=== PATIENT | female | born 2000 | race Two or more races ===

== ENCOUNTER 2024-11-10 13:17 | Outpatient (AMB) | payer BC, MEDICAID, SELFPAY ==
[2024-11-10 13:26] VITALS: BP 118/81; PULSE 114; RESP 16; TEMP 36.2; O2SAT 98; BMI 23.4
--- NOTE | 2024-11-10 13:26 | PD.RESCLINIC ---
Vital Signs 11/10/24 13:26 Height 1.57 m Height Method Stated Weight 58.173 kg Weight Measurement Method Standing Scale BMI 23.4 BP 118/81 Blood Pressure Source Automatic Cuff Blood Pressure Location Left Upper Arm Position Sitting Respiration 16 Pulse 114 H Pulse Source Monitor Temp 97.2 F Temp Source Temporal Artery Scan Pulse Oximetry (%) 98 Oxygen Delivery Method Room Air Allergies/Meds Allergies & Medications Allergies Latex, Natural Rubber Allergy (Mild, Verified 11/11/24 09:33) Hives latex Allergy (Verified 11/11/24 09:33) Medication Reconciliation hydrocodone 5 mg-acetaminophen 325 mg tablet 1 tab PO Q6H #20 tabs 12/25/21 [Rx] rizatriptan 10 mg disintegrating tablet (Maxalt-DIRECTOR SELECTION AND ADMINISTRATION) 10 mg PO Q2H PRN migraine headache #30 tabs 12/26/23 [Rx] benzonatate 200 mg capsule 200 mg PO TID PRN cough 3 weeks #20 caps 11/10/24 [Rx Confirmed 11/11/24] MA Intake Visit Data Collection New Patient or Established: Established Patient (seen at [facility] within 3 years) Seen by Clinical Staff ONLY (RN/MA): No Pain Present Currently: No Pain scale:: 0 Pain Scale Used: Gillis-Waters/Numerical Washroom Attendant Required: No PCP or OBGYN visit in last 3 months: Yes Hx Now: No Do You Feel Safe at Home: Yes Authorities Contacted: N/A Smoking Status Smoking Status: Never smoker Immunization / Flu Flu Vaccine in the Last 12 Months: Yes Flu Vaccine Exclusion Criteria: No Exclusion Criteria Past Medical History Past Medical History NEUROLOGIC: Negative Neurological Disorders or Seizures CARDIAC: Negative Cardiac Disorders or Congestive Heart Failure RESPIRATORY: Positive Asthma; Negative Chronic Obstructive Pulmonary Disease (COPD) GASTROINTESTINAL: Positive Gastrointestinal Disorders and Gall Bladder Disease GENITOURINARY: Negative Genitourinary Disorders or Renal Disease ENDOCRINE: Negative Endocrine Disorders, Diabetes Mellitus Type 1 or Diabetes Mellitus Type 2 HEMATOLOGIC: Negative Blood Disorders or Anemia OTHER HISTORY: Positive Chicken Pox; Negative Autoimmune Disease, Down Syndrome, Developmental Delay, Falls, Blood Transfusions, Blood Transfusion Reaction, Anesthesia Reactions, MRSA, Measles, Mumps, Clostridium Difficile or Cancer Family History FAMILY HISTORY: Positive Family Cardiac Disorders (mom htn), Family Gastrointestinal Problems (mom and siblings gall bladder removal) and Family Surgery (gall bladder); Negative Family Respiratory Disorders, Family Cancer or Family Anesthesia Reaction Surgical History SURGICAL: Positive Lumpectomy (mass removal left breast); Negative Cardiac Surgery, Endocrine Surgery, Ear Surgery, Abdominal Surgery or Nephrectomy Social History SMOKING STATUS: Smoking status: Never smoker ALCOHOL: Alcohol Intake: Never HOUSING: Housing: House Patient Portal Questionaires Social History Living Situation History Housing: House Tobacco History Smoking Status: Never smoker Alcohol History Alcohol Intake: Never Domestic Abuse History Do You Feel Safe at Home: Yes Review of Systems Report any current symptoms Only answer those that you have currently: Past Medical History Past Medical History Have you ever been diagnosed with any of the following: Neurological Problems Seizures: No Cardiology Problems Congestive Heart Failure: No Respiratory Problems Chronic Obstructive Pulmonary Disease (COPD): No Asthma: Yes Stomache/Intestinal Problems Gall Bladder Disease: Yes Genital/Urinary Problems Renal Disease: No Endocrine Problems Diabetes Mellitus Type 1: No Diabetes Mellitus Type 2: No Blood Problems Anemia: No Other Problems Autoimmune Disease: No Down Syndrome: No Developmental Delay: No Falls: No Blood Transfusions: No Blood Transfusion Reaction: No Anesthesia Reactions: No MRSA: No Chicken Pox: Yes Measles: No Mumps: No Clostridium Difficile: No Cancer: No History of Present Illness HPI Narrative 24F with PMH H. 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 She states she had a sinus infection last week, which has improved with OTC sudafed, mucinex, nyquil, and was prescribed inhalers. Her cough is constant, dry with occasional clear sputum and keeps her awake at night. COVID was negative. Additionally, on ROS patient endorses coldness in extremities and syncope related to hypoglycemia episodes. She is being followed by endocrine. She was also seen by cardiology, with EKG and Holter monitor negative for cardiac cause of syncope. She denies any ear pain/discharge, chest pain, SOB, abd pain, N/V/D, or urinary symptoms. Review of Systems Review of Systems Systems Reviewed: All systems reviewed, normal except as documented Objective/Exam Narrative Physical exam: Gen: AAOx3, pleasant to speak with, answers Qs appropriately HEENT: NCAT, PERRLA, EOMI, MMM, no LAD, mild erythema in pharynx without exudates. B/L TM visualized without any fullness or effusions noted CVS: normal S1, S2. tachycardic, RR. No MRG Resp: CTA B/L. No rhonchi, rales, crackles or wheezing Abd: soft, non-tender, non-distended. BS+ in all 4 quadrants MSK: Good ROM in BUE & BLE. No edema or rash. Neuro: CN II-XII grossly intact. Strength 5/5 in BUE & BLE. Psych: appropriate mood and affect. Assessment & Plan Diagnosis / Problem List (1) Cough in adult: Status: Acute Assessment & Plan: Lingering cough after sinus infection, and has tried OTC tx including mucinex, nyquil, sudafed. Was prescribed inhalers. Plan: Will add tessalon perles 200mg q8hr prn to help with cough at night, as patient is in nursing school and is feeling tired from poor sleep related to cough (2) Hypoglycemia: Status: Acute Assessment & Plan: Hypoglycemia associated with syncopal episodes Plan: Advised patient to continue following with endocrine, and to look for signs/symptoms of hypoglycemia. Additionally recommended to keep juice/candy with her in case of hypoglycemia. Plan tessalon for cough suppressant Additional Assessment Internal Medicine Attending Note: Case discussed with and agree with note and management plan of Resident Physician as per Resident's Note above. Issues of concern for present visit are as follows: Walk-in visit. Recent course of sinusitis. Still with complaint of irritation in throat, some cough. Using appropriate OTC regimen. Will add nighttime cough suppressant (benzonatate). Consider use of PPI, history of Helicobacter pylori treated. No indication for antibiotics at this time. Report of episodes of symptomatic hypoglycemia, patient currently seeing endocrinology and will follow-up with them for further workup. History of growth hormone deficiency as a child. Ciro Saavedra MD Physician Billing New Patient New Patient: E/M Level 3-CPT 96520 Office Procedures [facility] Level of Care Nursing/Assessment Patient Status: Established Patient Nursing Assessment/Reassessment: Medication Reconciliation, Update PMH in EMR and Vital Signs Coordination of Care: Complex Care and Chronic Disease 1-5, Consent,records obtained, informed consent, Education Simp Pt/Fam and Staff clarify orders Established Patient Charge Established Patient Point Assignment: 85 Established Patient Point Charge: Level 3 (80-115)
== END 2024-11-10 14:55 | disposition home or self-care (01) ==
LOC: HODAHC 13:17
PROVIDERS: PCP Family Medicine; Referring Provider Family Medicine; Supervising Provider Internal Medicine; Visit Provider Student in an Organized Health Care Education/Training Program
DX: R05.9 Cough, unspecified (principal); R53.1 Weakness; E16.2 Hypoglycemia, unspecified
CPT/HCPCS: 99213; G0463

== ENCOUNTER → 2024-12-23 | Outpatient (CLI) | payer BC, MEDICAID, SELFPAY ==
[2024-12-23 15:39] LABS: Collection Type, Urine Clean Catch
[2024-12-23 17:05] LABS: Bacteria,Urine 1+; Bilirubin,Urine Negative (Negative); Blood,Urine Negative (Negative); Color,Urine Lt-Yellow (Lt Yel-Yel); Glucose, Urine Negative (Negative); Ketones,Urine Negative (Negative); Leukocyte Esterase,Urine Positive (Negative); Nitrite,Urine Negative (Negative); Protein,Urine Negative (Neg - Trace); RBC,Urine 5 /hpf (0-3); Specific Gravity,Urine 1.019 (1.001-1.035); Squamous Epithelial Cell,Urine 22 /hpf (0-5); Urobilinogen,Urine Negative mg/dL (0.0-1.0); WBC,Urine 144 /hpf (0-5)
[2024-12-23 17:06] LABS: Clarity,Urine Hazy (Clear/Hazy)
== END | disposition home or self-care (01) ==
LOC: SLDO 15:27
PROVIDERS: PCP Physician Assistant; Referring Provider Physician Assistant; Visit Provider Physician Assistant
DX: N39.0 Urinary tract infection, site not specified (principal)
CPT/HCPCS: 81001; 87086

== ENCOUNTER → 2024-12-23 | Outpatient (CLI) | payer BC, MEDICAID, SELFPAY ==
[2024-12-23 11:29] LABS: Basophils % (Auto) 1 % (0-2.5); Eosinophils # (Auto) 0.1 Thou/mm3 (0.0-0.5); Eosinophils % (Auto) 1 % (0-10); Hematocrit 42.5 % (36.0-46.0); Hemoglobin 14.5 g/dL (12.0-16.0); Immature Granulocytes % (Auto) 0 % (0-0); Immature Granulocytes Auto 0.01 Thou/mm3 (0.00-0.00); Lymphocytes # (Auto) 1.9 Thou/mm3 (1.0-4.8); Lymphocytes % (Auto) 35 % (10-50); Mean Corpuscular HGB Conc 34.1 g/dl (31.0-37.0); Mean Corpuscular Hemoglobin 30.9 pg (25.0-35.0); Mean Corpuscular Volume 90 fL (80-100); Monocytes # (Auto) 0.3 Thou/mm3 (0.0-0.8); Monocytes % (Auto) 6 % (0-12); Neutrophils % (Auto) 57 % (37-80); Nucleated Red Blood Cell % 0 /100 WBC (0); Platelet Count 184 Thou/mm3 (140-440); RDW Standard Deviation 39.9 fL (36.4-46.3); White Blood Count 5.3 Thou/mm3 (3.6-11.0)
[2024-12-23 11:41] LABS: Alanine Aminotransferase 10 U/L (10-49); Albumin/Globulin Ratio 1.8 (1.2-2.2); Alkaline Phosphatase 58 U/L (46-116); Anion Gap 7 (7-16); Aspartate Amino Transferase 16 U/L (0-34); BUN/Creatinine Ratio 17 Ratio (12-20); Bilirubin,Total 0.4 mg/dL (0.3-1.2); Blood Urea Nitrogen 12 mg/dL (9-23); Calcium 10.1 mg/dL (8.3-10.6); Calcium (Corrected) 10.1 mg/dL (8.5-10.1); Carbon Dioxide 29.8 mMol/L (20.0-31.0); Chloride 106 mMol/L (98-107); Creatinine (Component) 0.7 mg/dL (0.6-1.3); Globulin 2.8 gm/dL (2.3-3.5); Glucose 92 mg/dL (74-106); Osmolality,Calculated 284 (275-295); Potassium 4.8 mMol/L (3.4-5.1); Sodium 143 mMol/L (136-145); Thyroid Stimulating Hormone 0.63 uIU/mL (0.55-4.78); Total Protein 7.8 gm/dL (5.7-8.2); eGFR > 60 See Note
[2024-12-23 12:11] LABS: Ferritin 15 ng/mL (7.3-270.7); Iron 60 mcg/dL (50-170)
[2024-12-23 12:12] LABS: Vitamin B12 557 pg/mL (211-911); Vitamin D 25 Hydroxy Total 14.3 ng/mL (7.3-40.2)
== END | disposition home or self-care (01) ==
LOC: COPL 10:15
PROVIDERS: PCP Family Medicine; Referring Provider Physician Assistant; Visit Provider Physician Assistant
DX: R53.83 Other fatigue (principal)
CPT/HCPCS: 36415; 80053; 82306; 82607; 82728; 83540; 84443; 85025

== ENCOUNTER 2025-06-20 14:00 | Outpatient (AMB) | payer BC, MEDICAID, SELFPAY ==
[2025-06-20 14:21] VITALS: BP 134/80; PULSE 83; RESP 18; TEMP 36.2; O2SAT 97; BMI 25.9
--- NOTE | 2025-06-20 14:21 | AMB.OBINITIA ---
Vital Signs 06/20/25 14:21 Height 1.57 m Height Method Stated Weight 64.013 kg Weight Measurement Method Standing Scale BMI 25.9 BP 134/80 H Blood Pressure Source Automatic Cuff Blood Pressure Location Left Upper Arm Position Sitting Respiration 18 Pulse 83 Pulse Source Monitor Temp 97.2 F Temp Source Oral Pulse Oximetry (%) 97 Oxygen Delivery Method Room Air Allergies/Home Meds Allergies & Medications Allergies Latex, Natural Rubber Allergy (Mild, Verified 06/20/25 14:23) Hives latex Allergy (Verified 06/20/25 14:23) Intake Visit Data Collection New Patient or Established: Established Patient (seen at [facility] within 3 years) Reason for Visit:: OBI Seen by Clinical Staff ONLY (RN/MA): No Personal Financial Counselor Required: No Do You Feel Safe at Home: Yes Authorities Contacted: N/A PCP or OBGYN visit in last 3 months: Yes Date of Last PCP or OBGYN visit: 06/19/25 Hx Now: Yes Are you currently on any form of Control: No Last menstrual period: 05/19/25 Pain Present Currently: No Pain Scale Used: Gillis-Waters/Numerical Pain scale:: 0 Smoking Status Smoking Status: Never smoker Questionnaires Covid-19 Vaccine Questionnaire Has patient been vacinated for Covid-19 Have you been vacinated for Covid-19: Yes PHQ-9 PHQ-2 Over the last 2 weeks, how often have you been bothered by any of the following problems? 1. Little interest or pleasure in doing things: not at all 2. Feeling down, depressed, or hopeless: not at all Total score: 0 PHQ-9 3. Trouble falling or staying asleep, or sleeping too much: Not at all 4. Feeling tired or having little energy: Not at all 5. Poor appetite or overeating: Not at all 6. Feeling bad about yourself - or that you are a failure or have let yourself or your family down: Not at all 7. Trouble concentrating on things, such as reading the newspaper or watching television: Not at all 8. Moving or speaking so slowly that other people could have noticed? - Or the opposite - being so fidgety or restless that you have been moving around a lot more than usual: not at all 9. Thoughts that you would be better off or of hurting yourself in some way: Not at all Total score: 0 If you checked off any problems, how difficult have these problems made it for you to do your work, take care of things at home, or get along with other people?: not difficult at all Source: Developed by Drs. James Villatoro, Aurora Mckeon, Arjun Vale and colleagues, with an educational cristian from [employer]. Depression screen completed yes Social History Living Situation History Marital Status: Single Lives With: Family Housing: House Housing Other:: PATIENT IS ENGAGED Tobacco History Smoking Status: Never smoker Second Hand Smoke Exposure: No Alcohol History Alcohol Intake: Never Domestic Abuse History Do You Feel Safe at Home: Yes History of Present Illness HPI Narrative 24 Years old at gestational age 4.4 weeks based on last menstrual period of dated 05/19/2025 No complaints so far Here for first visit LPS February 2024 LMP 05/19/2025 Ultrasoundplan next visit medical problems none Allergies latex and natural rubber Surgical history gall bladder and benign breast mass social history negative OPTICS ENGINEER: Past Medical History Past Medical History: No Hx Neurological Disorders, No Hx Cardiac Disorders, No Hx Cancer, No Hx Blood Disorders, No Hx Anemia, Yes Hx Gastrointestinal Disorders, No Hx Renal Disease, No Hx Diabetes Mellitus Type 1 and No Hx Diabetes Mellitus Type 2 Additional Operations/Hospitalizations (year & reason): Gall Bladder removed in 2021 Benign Breast Mass removed in 2016 OB Initial Visit OB Flowsheet OB Flowsheet Initial Weight: Not Recorded Date <del>?</del> EGA Weight BP Alb Glu CTX Pres Fundal ht FHR Mov Dilation Station Effacement Hx Notes Visit Note 06/20/25 <del>?</del> 4w 4d 64.013 kg 134/80 Menstrual History Menstrual reliability: definite Flow: normal Menstrual regularity: regular Monthly: Yes Age at menarche: 7 On control pills at conception: No OB History : 2 Para: 1 Hx # Pregnancies: 0 Hx Total # of Abortions (Spontaneous & Elective): 0 # of Living Children: 1 Delivery History 1st : Child's name: MARCO DAVIS date: 10/24/21 sex: male Gestational age at delivery (weeks): 41 Delivery type: vaginal History of depression before or after : No Infection History & Risk Evaluation History of STDs: none HIV risk evaluation: low risk Hepatitis B risk evaluation: low risk Patient or partner has history of Genital Herpes: No Varicella/chicken pox status: immunized Genetic Screening & History Genetic Screening/Teratology Counseling - Includes patient, baby's father, or anyone in either family with: 1. Patient's age 35 years or older as of estimated date of delivery: No 2. Thalassemia (Lithuanian, Tajik, Mediterranean, or Background); MCV less than 80: No 3. Neural Tube Defect (Meningomyelocele, Spina Bifida, or Anencephaly): No 4. Congenital Heart Defect: No 5. Down Syndrome: No 6. Akira-Sachs (Ashkenazi Holiness, Cajun, [place]ian [place]): No 7. Meliton Disease (Ashkenazi Holiness): No 8. Familial Dysautonomia (Ashkenazi Holiness): No 9. Sickle Cell Disease or Trait (): No 10. Hemophilia or other blood disorders: No 11. Muscular Dystrophy: No 12. Cystic Fibrosis: No 13. Murray's Chorea: No 14. Mental Retardation/Autism: Yes 15. Other inherited genetic or chromosomal disorder: No 16. Maternal Metabolic Disorder (EG,TYPE 1 Diabetes, PKU): No 17. Patient or baby's father had a child with defects not listed above: No 18. Recurrent loss or a stillbirth: No 19. Medications (including supplements, vitamins, herbs or otc drugs)/illicit/recreational drugs/alcohol since last menstrual period: No 20. Any other: No Infection History 1. Live with someone with TB or exposed to TB: No 2. Rash or viral illness since last menstrual period: No 3. Hepatitis B,C: No Other (see comments) Source: [employer] Review of Systems Review of Systems Systems Reviewed: All systems reviewed, normal except as documented Exam Narrative Physical exam: Alert and oriented x 3 no shortness of breath Pain no chest pain no palpitations Chest clear bilaterally no additional sounds, no wheezing no rales CVS regular rate and rhythm No CVAT Abdomen nontender, normal bowel sounds No guarding no rigidity No hernias Results Objective Laboratory: h/o Rh negative blood type received antepartum and rhogam last / Plan labs with NIPT and carrier testing next visit in 4 weeks Imaging: Plan bedside US next visit Office Procedures [facility] LOC & Office Proc's Nursing/Assessment Patient Status: Established Patient OB Clinic Nursing Assessment: Medication Reconciliation, Update PMH in EMR and Vital Signs OB Clinic Coordination of Care: Consent,records obtained, informed consent, Education Simp Pt/Fam, Lab and Imaging orders, Results/Orders obtained and Staff clarify orders Special Needs: Heart tones Established Patient Charge Established Patient Point Assignment: 110 Established Patient Point Charge: EP Level 3 (80-115) Assessment & Plan Diagnosis / Problem List (1) : Status: Acute Qualifiers: Weeks of gestation: less than 8 weeks Qualified Code(s): Z3A.01 - Less than 8 weeks gestation of Assessment and Plan: Assessment IUP at 4.4 weeks gestational age in a 24 years old G2 P 1 additional diagnoses patient states she has negative Rhesus blood type and received rhogam ppropriately in her last Plan labs /NIPT and carrier screening next visit education/counselling first trimester medications taking vitamins immunization flu vaccine received recent and HPV Vaccine in past Tdap in 2023 Follow up in 4 weeks Additional Plan Follow Up: 4 Weeks
== END 2025-06-20 14:53 | disposition home or self-care (01) ==
PROVIDERS: PCP Family Medicine; Referring Provider Family Medicine; Supervising Provider Obstetrics & Gynecology; Visit Provider Obstetrics & Gynecology
DX: O09.891 Supervision of other high risk pregnancies, first trimester (principal); Z3A.01 Less than 8 weeks gestation of pregnancy; Z67.91 Unspecified blood type, Rh negative
CPT/HCPCS: 99213; G0463

== ENCOUNTER 2025-07-19 12:45 | Emergency (ER) | payer BC, MEDICAID, SELFPAY ==
[2025-07-19 12:46] VITALS: BMI 25.2
[2025-07-19 13:35] VITALS: BP 134/84; PULSE 86; RESP 18; TEMP 36.8; O2SAT 99
--- NOTE | 2025-07-19 13:37 | XR_ITS ---
Examination: Complete OB ultrasound, less than 14 weeks, transabdominal Date and time of exam: July 19, 2025, 1502 hours INDICATIONS: 8-week with headaches beginning 3 days ago Technique: Obstetrical ultrasound images less than 14 weeks performed via transabdominal imaging Findings: A normal shaped single intrauterine gestation is present in the uterus. CRL 2.4 cm corresponds to 9 weeks 1 day gestational age Cardiac motion 169 bpm Subchorionic hemorrhage adjacent to the gestational sac 14 x 5 x 11 mm Ultrasonographic survey of visible structures unremarkable. Amniotic fluid volume appears appropriate for this estimated gestational age. Right ovary 2.6 cm arterial flow Left ovary 2.5 cm arterial flow. IMPRESSION: Viable intrauterine gestation 9 weeks 1 day
--- NOTE | 2025-07-19 13:38 | EDNOTE_ITS ---
ED Headache RME/HPI General Chief Complaint: Headache Stated Complaint: HEADACHE, FATIGUE, N/V, 8 WEEK OB Time Seen by Provider: 07/19/25 13:01 Arrival date/time: 07/19/25 12:45 24-year-old female patient 2 para 1, about 8 weeks , came in for evaluation regarding headache. Patient has been having headache for several days, probably secondary to a lot of vomiting due to , cannot take anything down. Patient also complained of pelvic discomfort called her ROUTE JUMPER I was thinking it was UTI. Denies any abdominal pain denies any vaginal bleeding denies any other complaints no medication was taken prior to ER visit patient has a significant history of migraine headache Related Data Previous Rx's ?Medication ?Instructions ?Recorded hydrocodone 5 mg-acetaminophen 325 1 tab PO Q6H #20 ta bs 12/25/21 mg tablet rizatriptan 10 mg disintegrating 10 mg PO Q2H PRN migr jason headache 12/26/23 tablet (Maxalt-MUTUEL CLERK) #30 tabs cephalexin 500 mg capsule 500 mg PO TID 7 days #21 cap s 07/19/25 metoclopramide HCl 10 mg tablet 10 mg PO Q8H PRN nause a and 07/19/25 (Reglan) vomiting #14 tabs Allergies Allergy/AdvReac Type Severity Reaction Status Date / Time Latex, Natural Rubber Allergy Mild Hives Verified 07/19/25 12:48 latex Allergy Verified 07/19/25 12:48 Review of Systems Review of Systems Narrative Review of Systems: Review of system reviewed and within normal limits except mentioned in HPI ED Exam Narrative Physical exam: VITAL SIGNS: Reviewed. GENERAL APPEARANCE: Alert and interactive, follows commands, no acute distress, HEAD AND FACE: Non-traumatic. ENT: PERRL, pink conjunctivitis, eyelid no trauma, Mucous membrane dry NECK: Supple, nontender, no nuchal rigidity. CHEST: No tenderness, no crepitus, no paradoxical movement, no retractions. LUNGS: Clear, well ventilated, symmetric, no rales, no wheezing, no ronchi, no stridor, good breath sounds bilaterally. HEART: Regular rate, regular rhythm, no murmur, no gallops. ABDOMEN: Soft, positive bowel sounds, nondistended, no guarding, nontender, no rebound, no masses, RECTAL: Deferred. GENITAL: Deferred. NEUROLOGICAL: Gross motor function intact sensory function intact, Appropriate for age. MUSCULOSKELETAL: low back nontender, full range of motion. EXTREMITIES: Nontender, full range of motion. SKIN: Color pink, dry, no rash, no lacerations, no abrasions, no contusions. LYMPHATICS: Deferred. Course Quality Measures none Orders Category Date Time Status US OB <= 14 weeks fetus Stat Exams 07/19/25 13:37 Completed ABO/RH Type Stat Lab 07/19/25 14:13 Completed Basic Metabolic Panel Stat Lab 07/19/25 14:13 Completed Beta HCG,Quantitative Stat Lab 07/19/25 14:13 Completed CBC Stat Lab 07/19/25 14:13 Completed Urinalysis Stat Lab 07/19/25 13:54 Completed Acetaminophen Tab [Tylenol ES Tab] Med 07/19/25 13:37 Discontinued 1,000 mg PO X1 ONE Metoclopramide Inj [Reglan Inj] Med 07/19/25 13:37 Discontinued 10 mg IVP X1 ONE Ringers Lactated 1000 ml [Lactated Ringers] 1,000 ml Med 07/19/25 13:37 Discontinued IV 999 mls/hr cephALEXin [Keflex] Med 07/19/25 16:58 Discontinued 500 mg PO X1 ONE Vital Signs Vital signs: Vital Signs Temperature 98.2 F 07/19/25 13:35 Pulse Rate 86 07/19/25 13:35 Respiratory Rate 18 07/19/25 13:35 Blood Pressure 134/84 H 07/19/25 13:35 Pulse Oximetry (%) 99 07/19/25 13:35 Oxygen Delivery Method Room Air 07/19/25 13:35 Headache MDM Narrative MDM Narrative:: 07/19/25 12:45 24-year-old female patient 2 para 1, about 8 weeks , came in for evaluation regarding headache. Patient has been having headache for several days, probably secondary to a lot of vomiting due to , cannot take anything down. Patient also complained of pelvic discomfort called her ROUTE JUMPER I was thinking it was UTI. Denies any abdominal pain denies any vaginal bleeding denies any other complaints no medication was taken prior to ER visit patient has a significant history of migraine headache Patient's workup all came back positive for UTI. Ultrasound of the showed single live intrauterine gestation showed single live intrauterine gestation about 9 weeks and 1 day of no abnormality noted. Patient received IV fluids, Tylenol, Reglan, Keflex with significant problems she is stable for discharge home. Patient data External records reviewed:: None Clinical information provided by:: patient Social determinants that could affect healthcare access:: none Patient has the following chronic illnesses:: History of migraine headache How is presenting disease/condition affected by chronic disease/condition?: exacerbated by Evaluation data The following diagnostics were reviewed and interpreted by me:: lab results and radiology exam(s) Lab and/or radiology exams considered but not ordered:: None Interpretation Summary: See [facility] [place] Medications / Prescriptions Medications or Prescriptions considered but not ordered:: None Medication administrations:: Medication Administration History Discontinued Medications Acetaminophen (Acetaminophen 500 Mg Tablet) 1,000 mg PO X1 ONE Stop: 07/19/25 13:38 Last Admin: 07/19/25 17:14 Dose: 1,000 mg Documented By: Cephalexin HCl (Cephalexin 250 Mg Capsule) 500 mg PO X1 ONE Stop: 07/19/25 16:59 Lactated Ringer's (Lactated Ringers) 1,000 mls @ 999 mls/hr IV .Q1H1M ONE Stop: 07/19/25 14:37 Metoclopramide HCl (Metoclopramide Inj 5 Mg/Ml Vial 2 Ml) 10 mg IVP X1 ONE; Protocol Stop: 07/19/25 13:38 See [facility] [place] Consultations Consultation(s) initiated? (list below): No Diagnosis Differential diagnosis headache: migraine, tension headache, headache and other (Hyperemesis gravidarum, vomiting, ) Most likely diagnosis given after review of the tests above:: Vomiting, UTI, headache, Admission Indicated Admission indicated?: not indicated Admission Request Was there a request for admission?: No Disposition Plan Disposition Plan: Discharge Discharge Attestation Discharge Attestation: The patient was given an opportunity to ask questions and understood the discharge instructions. Discharge instructions specifically effects, indications for sooner follow up or return to the emergency department, and the expected course of current diagnosis. Patient condition: Stable Discharge Plan Plan Patient Disposition: HOME (Self Care) Discharge Disposition comment: stable Prescriptions/Referrals Prescriptions/Med Rec: New cephalexin 500 mg capsule 500 mg PO TID 7 Days Qty: 21 0RF metoclopramide HCl [Reglan] 10 mg tablet 10 mg PO Q8H PRN (Reason: nausea and vomiting) Qty: 14 0RF No Action hydrocodone-acetaminophen 5-325 mg tablet 1 tab PO Q6H MDD 4 Qty: 20 0RF rizatriptan [Maxalt-MUTUEL CLERK] 10 mg tablet,disintegrating 10 mg PO Q2H PRN (Reason: migraine headache) Qty: 30 0RF Rx Instructions: do not exceed 3 doses per 24 hrs Referrals: Ady Goodwin MD [Primary Care Provider, Family Practice] - In 1 week Problem List Clinical Impression: Vomiting, Headache, , UTI (urinary tract infection) Patient/Caregiver Discharge Instructions Discharge Activity: activity as tolerated Education Materials: Understanding Urinary Tract ... Additional Instructions: Thank you for the opportunity for serving you today. You are stable for discharged . You are advised to: Follow-up with your PCP in 1 to 2 days Return to ED for worsening of symptoms Increase oral fluids Take medication as prescribed Print Language: Yi Stand Alone Forms: Janice Award Info., Patient Portal Info Letter PA/CRIMINAL JUSTICE DEPARTMENT CHAIR Supervising Physician PA/JAIME Supervising Physician: MD Gilberto
[2025-07-19 14:02] LABS: Collection Type, Urine Clean Catch
[2025-07-19 14:07] LABS: Bilirubin,Urine Negative (Negative); Blood,Urine Negative (Negative); Clarity,Urine Clear (Clear/Hazy); Color,Urine Lt-Yellow (Lt Yel-Yel); Glucose, Urine Negative (Negative); Ketones,Urine Negative (Negative); Leukocyte Esterase,Urine Positive (Negative); Nitrite,Urine Negative (Negative); PH,Urine 6.5 (5.0-7.0); Protein,Urine Negative (Neg - Trace); RBC,Urine 3 /hpf (0-3); Specific Gravity,Urine 1.009 (1.001-1.035); Squamous Epithelial Cell,Urine 1 /hpf (0-5); Urobilinogen,Urine Negative mg/dL (0.0-1.0); WBC,Urine 16 /hpf (0-5)
[2025-07-19 14:28] LABS: Basophils # (Auto) 0.0 Thou/mm3 (0.0-0.2); Basophils % (Auto) 0 % (0-2.5); Eosinophils # (Auto) 0.0 Thou/mm3 (0.0-0.5); Eosinophils % (Auto) 1 % (0-10); Hematocrit 38.6 % (36.0-46.0); Hemoglobin 13.4 g/dL (12.0-16.0); Immature Granulocytes Auto 0.02 Thou/mm3 (0.00-0.00); Lymphocytes # (Auto) 1.9 Thou/mm3 (1.0-4.8); Lymphocytes % (Auto) 22 % (10-50); Mean Corpuscular HGB Conc 34.7 g/dl (31.0-37.0); Mean Corpuscular Hemoglobin 30.3 pg (25.0-35.0); Mean Corpuscular Volume 87 fL (80-100); Monocytes # (Auto) 0.5 Thou/mm3 (0.0-0.8); Monocytes % (Auto) 6 % (0-12); Neutrophils # (Auto) 6.1 Thou/mm3 (1.8-7.7); Neutrophils % (Auto) 71 % (37-80); Nucleated Red Blood Cell # 0.00 Thou/mm3 (0.00-0.00); Nucleated Red Blood Cell % 0 /100 WBC (0); Platelet Count 203 Thou/mm3 (140-440); RDW Standard Deviation 38.4 fL (36.4-46.3); Red Blood Count 4.42 Miln/mm3 (4.00-5.20); White Blood Count 8.6 Thou/mm3 (3.6-11.0)
[2025-07-19 14:46] LABS: Anion Gap 12 (7-16); BUN/Creatinine Ratio 12 Ratio (12-20); Blood Urea Nitrogen 6 mg/dL (9-23); Calcium 10.5 mg/dL (8.3-10.6); Carbon Dioxide 26.4 mMol/L (20.0-31.0); Chloride 101 mMol/L (98-107); Creatinine (Component) 0.5 mg/dL (0.6-1.3); Estimated Creatinine Clearance 149.6 mL/min (>60); Glucose 83 mg/dL (74-106); Osmolality,Calculated 274 (275-295); Potassium 4.0 mMol/L (3.4-5.1); Sodium 139 mMol/L (136-145); eGFR > 60 See Note
[2025-07-19] MEDS: ACETAMINOPHEN 500 MG TABLET 1000 MG PO (17:14)
[2025-07-19] MEDS: RINGERS LACTATED 1000 ML 1,000 ML 999 ML IV (18:10)
[2025-07-19] MEDS: METOCLOPRAMIDE INJ 5 MG/ML VIAL 2 ML 10 MG IVP (18:10)
[2025-07-19 18:12] VITALS: BP 118/76; PULSE 68; RESP 16; TEMP 37.2; O2SAT 98
== END 2025-07-19 19:04 | disposition home or self-care (01) ==
PROVIDERS: Nurse Practitioner Family; Emergency Provider Family Medicine; PCP Family Medicine
DX: O26.891 Other specified pregnancy related conditions, first trimester (principal); O23.41 Unspecified infection of urinary tract in pregnancy, first trimester; O21.9 Vomiting of pregnancy, unspecified; R51.9 Headache, unspecified; Z3A.08 8 weeks gestation of pregnancy
CPT/HCPCS: 36415; 76801; 80048; 81001; 84702; 85025; 86900; 86901; 96361; 96374; 99284; J2765; J7120; A9270